=== PATIENT | female | born 1975 | race American Indian/Alaskan Native ===

== ENCOUNTER 2018-07-13 13:59 | Emergency (ER) | payer MEDICAID, OTHER ==
[~2018-07-13] VITALS: Ht 175.3 cm; Wt 100.0 kg
[~2018-07-13 13:59] MED LIST: ATI1T PO; CIPR-259 PO; METF-436 PO; ONDA4TAB12 PO
[2018-07-13 14:15] VITALS: BP 175/96
[2018-07-13] MEDS ORDERED: DOXY100T2 PO (15:36)
[2018-07-13] MEDS ORDERED: LIDOcaine 0.5% W/epiNEPHrine 1:200,000 50ml vial IJ ONE (15:55)
[2018-07-13] MEDS ORDERED: LIDOcaine 1% w/epiNEPHrine 1:200,000 30ml vial IJ ONE (16:10)
== END 2018-07-13 16:39 | disposition home or self-care (01) ==
LOC: ER 14:02
DX: S91.332D Puncture wound without foreign body, left foot, subsequent encounter (principal); L03.116 Cellulitis of left lower limb; E11.9 Type 2 diabetes mellitus without complications; F15.90 Other stimulant use, unspecified, uncomplicated; F10.10 Alcohol abuse, uncomplicated; Z88.5 Allergy status to narcotic agent; Z88.1 Allergy status to other antibiotic agents; Z79.84 Long term (current) use of oral hypoglycemic drugs; Z79.2 Long term (current) use of antibiotics; Z79.899 Other long term (current) drug therapy; Z56.0 Unemployment, unspecified; Y90.9 Presence of alcohol in blood, level not specified; W22.8XXD Striking against or struck by other objects, subsequent encounter
CPT/HCPCS: 10060; 99284; J3490

== ENCOUNTER 2018-09-02 10:25 | Emergency (ER) | payer MEDICAID ==
[~2018-09-02] VITALS: Ht 175.3 cm; Wt 110.9 kg
[~2018-09-02 10:25] MED LIST changes: -CIPR-259 PO; +DOXY100T2 PO
--- NOTE | 2018-09-02 11:36 | NUR ---
Lab at bedside, pt cooperative with blood draw.
[2018-09-02 12:14] LABS: ALANINE AMINOTRANSFERASE 25 U/L (12-78); ALBUMIN 3.2 G/DL (3.4-5.0); ALBUMIN/GLOBULIN RATIO 0.7 (1.1-1.5); ALKALINE PHOSPHATASE 104 IU/L (46-116); ANION GAP 11 (8-16); ASPARTATE AMINO TRANSFERASE 26 U/L (10-37); BILIRUBIN,TOTAL 0.7 MG/DL (0.1-1.0); BLOOD UREA NITROGEN 15 MG/DL (7-18); BUN/CREATININE RATIO 23.1 (6.6-38.0); CALCIUM 8.6 MG/DL (8.5-10.1); CHLORIDE 102 MMOL/L (99-107); CREATININE 0.65 MG/DL (0.40-0.90); GLUCOSE 127 MG/DL (70-104); POTASSIUM 4.6 MMOL/L (3.5-5.1); SODIUM 134 MMOL/L (135-145); TOTAL CARBON DIOXIDE 20.9 MMOL/L (24-32); TOTAL PROTEIN 7.6 G/DL (6.4-8.2); eGFR > 90 ML/MIN
[2018-09-02 12:22] LABS: ETHANOL < 0.010 GM/DL (0.0-0.010)
[2018-09-02 12:23] LABS: ACETAMINOPHEN < 2.0 UG/ML (10-30)
[2018-09-02 12:40] LABS: BASOPHILS % (AUTO) 0.5 % (0-1); EOSINOPHILS # (AUTO) 0.2 X10'3 (0-0.9); HEMATOCRIT 43.4 % (35.0-45.0); HEMOGLOBIN 14.5 g/dl (12.0-16.0); LYMPHOCYTES # (AUTO) 2.2 X10'3 (1.1-4.8); LYMPHOCYTES % (AUTO) 24.6 % (21-51); MEAN CORPUSCULAR HEMOGLOBIN 29.2 PG (27.0-31.0); MEAN CORPUSCULAR HGB CONC 33.5 g/dL (33.0-36.5); MEAN CORPUSCULAR VOLUME 87.2 FL (78-98); MEAN PLATELET VOLUME 8.3 FL (7.4-10.4); MONOCYTES # (AUTO) 0.9 X10'3 (0-0.9); MONOCYTES % (AUTO) 10.5 % (2-12); NEUTROPHILS # (AUTO) 5.5 X10'3 (1.8-7.7); NEUTROPHILS % (AUTO) 62.4 % (42-75); PLATELET COUNT 269 X10'3 (140-440); RED BLOOD COUNT 4.98 X10'6 (4.20-5.60); RED CELL DISTRIBUTION WIDTH 14.3 % (11.5-14.5); WHITE BLOOD COUNT 8.9 X10'3 (4.5-11.0)
--- NOTE | 2018-09-02 13:45 | NUR ---
PT SLEEPING, RESPIRATIONS SPONTANEOUS, EVEN AND UNLABORED, NO S/S OF DISTRESS DISCOMFORT OR AGITATION.
--- NOTE | 2018-09-02 14:19 | NUR ---
PT WAKENED BY TIANA CLINTON, PT AMBULATORY TO BATHROOM WITH STEADY GAIT TO PROVIDE URINE SAMPLE PER ORDERS NOW.
[2018-09-02 14:43] LABS: URINE HCG NEGATIVE (NEG)
[2018-09-02 14:55] LABS: URINE AMPHETAMINE SCREEN POSITIVE (Neg); URINE BARBITUATE SCREEN NEGATIVE (Neg); URINE BENZODIAZEPINES SCREEN NEGATIVE (Neg); URINE CANNABINOID SCREEN NEGATIVE (Neg); URINE COCAINE SCREEN NEGATIVE (Neg); URINE METHADONE SCREEN NEGATIVE (Neg); URINE OPIATE SCREEN NEGATIVE (Neg); URINE PHENCYCLIDINE SCREEN NEGATIVE (Neg)
[2018-09-02 15:04] LABS: CLARITY,URINE SLIGHTLY CLOUDY (Clear); COLOR,URINE YELLOW (Yellow); GLUCOSE, URINE NEGATIVE (Neg); KETONES,URINE TRACE mg/dl (Neg); LEUKOCYTE ESTERASE ,URINE NEGATIVE (Neg); NITRITES, URINE NEGATIVE (Neg); OCCULT BLOOD,URINE NEGATIVE (Neg); PH,URINE 5.5 (4.8-8.0); PROTEIN,URINE NEGATIVE (Neg); UA COLLECTION TYPE CLN CATCH MIDSTREAM; UROBILINOGEN,URINE 0.2 E.U/dL (0.2-1.0)
[2018-09-02 15:23] LABS: BACTERIA,URINE FEW /HPF (Neg); RBC,URINE NONE SEEN /HPF (0-2); SQUAMOUS EPITHELIAL CELL,UR FEW /LPF (FEW); WBC,URINE 0-4 /HPF (0-4)
[2018-09-02 15:24] LABS: MUCUS STRANDS FEW /LPF (Neg); URIC ACID CRYSTALS 4+ /HPF (NEGATIVE)
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
--- NOTE | 2018-09-02 17:32 | NUR ---
DR ASH TELEPSYCH PROVIDER CALLED, INFORMED OF PT STATUS, HISTORY AND VS, PROVIDER WILL CALL PT VIA TELEPSCH MONINTOR AT BEDSIDE NOW.
--- NOTE | 2018-09-02 17:55 | NUR ---
RECEIVED CALL FROM DR ASH SPECIALIST ONCALL, RECOMMENDING INVOLUNTARY HOLD AND IP PLACEMENT DUE TO SI STATEMENTS AND ETOH USE.
--- NOTE | 2018-09-02 18:01 | NUR ---
PT STATES SHE DRINKS 3-5 42 OUNCE STILL RESERVE AND 1/5 OF WHISKEY OR VODKA DAILY X COUPLE MONTHS, DR ANGLIN INFORMED.
--- NOTE | 2018-09-02 18:05 | NUR ---
DR ANGLIN HAS LEFT, DR LARA INFORMED OF PT DAILY ETOH USE, INSTRUCTED WAIT FOR TELEPSYCH RECOMMENDATIONS AND LOOK FOR ETOH WITHDRAW SYMPTOMS TACHYCARDIA AND TREMORS AND NOTIFY RN AND DOCTOR.
--- NOTE | 2018-09-02 18:28 | NUR ---
RPT RECVD FROM RIA RN, ASSUMED CARE OF PT. PT IS LAYING IN BED, CALM COOPERATIVE
--- NOTE | 2018-09-02 20:27 | NUR ---
PT IS LAYING ON HER BACK W/EARPLUGS IN HER EARS, ASLEEP, RR EVEN AND UNLABORED NO S/S DISTRESS.
[2018-09-02] MEDS: traZODone 50mg tablet PO PRN (22:36)
[2018-09-02] MEDS ORDERED: acetaminophen 325mg tablet PO ONE (22:45)
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
--- NOTE | 2018-09-03 00:31 | NUR ---
[facility] NURSE TO NURSE CALL FROM RANJITH AT [facility], RANJITH STATES THE DOCTOR WILL PROBABLY WANT TO WAIT ON ADMITTING THIS PATIENT DUE TO ETOH AND THEY WILL CALL AND LET US KNOW TOMORROW.
--- NOTE | 2018-09-03 01:29 | NUR ---
PT IS LAYING IN BED SLEEPING RR EVEN AND UNLABORED NO S/S DISTRESS.
--- NOTE | 2018-09-03 03:21 | NUR ---
PT IS LAYING ON HER BACK IN BED RR EVEN AND UNLABORED NO S/S DISTRESS
--- NOTE | 2018-09-03 05:33 | NUR ---
PT LAYING IN BED ON RIGHT SIDE RR EVEN AND UNLABORED NO S/S DISTRESS.
--- NOTE | 2018-09-03 06:39 | NUR ---
Patient sleeping on right side. No restless/distress observed. Patient is snoring. Continue to monitor.
--- NOTE | 2018-09-03 08:10 | NUR ---
Patient eating breakfast. No distress observed. Patient is calm and talkative. Continue to monitor.
[2018-09-03] MEDS: sertraline 50mg tablet PO SCH (08:28)
[2018-09-03] MEDS ORDERED: ibuprofen 200mg tablet PO ONE (09:10)
--- NOTE | 2018-09-03 10:20 | NUR ---
RN gave patient ibuprofen earlier for generalized body pain. Patient is sleeping on right side. No distress observed. Continue to monitor.
--- NOTE | 2018-09-03 12:15 | NUR ---
Patient sleeping. No distress observed. Continue to monitor.
--- NOTE | 2018-09-03 18:07 | NUR ---
Patient sitting up in bed. No distress observed. Continue to monitor.
--- NOTE | 2018-09-03 18:44 | NUR ---
Received report and was notified by ED charge Leihg that patient will be relocated to bed 7 in ED due to staffing. Patient moved with photogrammetric technician.
--- NOTE | 2018-09-03 18:51 | NUR ---
ASSUMED CARE OF PT, SITTER AT BEDSIDE,
--- NOTE | 2018-09-03 20:57 | NUR ---
pt is sleeping, resp even and unlabored
--- NOTE | 2018-09-03 23:14 | NUR ---
PT IS SLEEPING, RESP EVEN AND UNLABORED
[2018-09-03] MEDS: traZODone 50mg tablet PO PRN (23:24)
[2018-09-04] MEDS: sertraline 50mg tablet PO SCH (07:48)
--- NOTE | 2018-09-04 09:42 | NUR ---
PT IN NO DISTRESS. RESTING WELL ON GURNEY.
--- NOTE | 2018-09-04 13:08 | NUR ---
PT AWAKE AND ASKING FOR FOOD. PT INFORMED LUNCH SHOULD BE HERE IN A FEW MIN.
--- NOTE | 2018-09-04 13:29 | NUR ---
PT GIVEN LUNCH
--- NOTE | 2018-09-04 15:39 | NUR ---
PT RESTING ON GURNEY IN NO DISTRESS.
--- NOTE | 2018-09-04 16:25 | NUR ---
PT DOES NOT SHOW ANY SIGNS OF HAVING ALCOHOL WITHDRAWAL. SHE HAS BEEN SLEEPING A LOT AND AWAKE AND HAS BEEN VERY COOPERATIVE. NO SWEATS, SHAKING, HALLUCINATIONS. MEDICALLY DOING WELL. PT STATES SHE HAS A LITTLE ANXIETY BUT SHE MISSES HER KIDS. PT ALSO STATES SHE IS FINE AND IS OK WITH HOW THINGS ARE GOING AND THAT THIS PROCESS IS TAKING TIME. SHE STATES SHE IS STILL SAD AND "I DON'T KNOW WHAT TO DO."
[2018-09-04] MEDS ORDERED: acetaminophen 325mg tablet PO ONE (16:45)
--- NOTE | 2018-09-04 18:24 | NUR ---
TALKED WITH DAVID FROM [facility] ABOUT PLACING PT. HE STATES THEY DO NOT HAVE ANY BEDS AT THIS TIME UNTIL FRIDAY BUT HE IS PUTTING HER ON THE LIST.
--- NOTE | 2018-09-04 18:30 | NUR ---
PT GIVEN A BOOK TO READ AND SOME COLORING PAGES WITH SOME CRAYONS.
--- NOTE | 2018-09-04 18:45 | NUR ---
Pt walked over from main ED accompanied by RN to bed 20.
[2018-09-04] MEDS ORDERED: NO HOME MEDS (20:15)
--- NOTE | 2018-09-04 20:45 | NUR ---
Pt up to bathroom to give herself a sponge bath, bath wipes provided.
[2018-09-04] MEDS: traZODone 50mg tablet PO PRN (21:15)
[2018-09-05] MEDS ORDERED: acetaminophen 325mg tablet PO PRN (06:10)
--- NOTE | 2018-09-05 07:09 | NUR ---
RESTING ON LEFT SIDE EYES CLOSED RR EQUAL AND UNLABORED
--- NOTE | 2018-09-05 08:02 | NUR ---
RESTING ON LEFT SIDE EYES CLOSED RR EQUAL AND UNLABORED
[2018-09-05] MEDS: sertraline 50mg tablet PO SCH (08:42)
--- NOTE | 2018-09-05 08:45 | NUR ---
AWAKE SITTING ON SIDE OF BED EATING BREAKFAST. TYLENOL GIVEN FOR PAIN. NO NEEDS AT THIS TIME
--- NOTE | 2018-09-05 09:10 | NUR ---
UP TO BR, STEADY GATE
--- NOTE | 2018-09-05 10:30 | NUR ---
scmh at bs for eval. pt started yelling and being distruptive. security call for stand by. Shantel EMT at bs to take vs as pt states "i cant breath"
--- NOTE | 2018-09-05 10:42 | NUR ---
pt now resting eyes closed rr equal
--- NOTE | 2018-09-05 14:05 | NUR ---
[facility] CALLED FOR NURSE TO NURSE. ALL QUESTIONS ANSWERED. NURSE SPEAKING TO PT.
--- NOTE | 2018-09-05 14:55 | NUR ---
PT AWAKE WAITING TO HERE IF SHE HAS BEEN ACCEPTED TO [facility]
--- NOTE | 2018-09-05 15:46 | NUR ---
CALL PLACED TO [facility] OFFICE TO INQUIRE IF PT HAS BEEN ACCEPTED TO [facility]. PT HAS BEEN ACCEPTED AND THEY REQUEST SHE BE THERE BY 1999. [place] OFFICE STATES A VERIFICATION CLERK WILL BE HERE BETWEEN [phone]. IMFORMED PT OF PLAN.
[2018-09-05 17:54] VITALS: BP 183/103
--- NOTE | 2018-09-05 17:55 | NUR ---
UP TO BR
--- NOTE | 2018-09-05 18:43 | NUR ---
PT AWAITING TRANSFER TO [facility].
--- NOTE | 2018-09-05 19:46 | NUR ---
RELATIONSHIP ASSOCIATE HERE FOR TRANSFER TO [facility].
== END 2018-09-05 19:55 ==
LOC: ER 10:26
DX: R45.851 Suicidal ideations (principal); E11.9 Type 2 diabetes mellitus without complications; F15.90 Other stimulant use, unspecified, uncomplicated; Z88.1 Allergy status to other antibiotic agents; Z56.0 Unemployment, unspecified; Z88.6 Allergy status to analgesic agent
CPT/HCPCS: 36415; 80053; 80305; 80320; 80329; 81001; 81025; 84443; 85025; 99285

== ENCOUNTER 2018-12-11 14:04 | Emergency (ER) | payer MEDICAID ==
[~2018-12-11] VITALS: Ht 162.6 cm; Wt 113.0 kg
[~2018-12-11 14:04] MED LIST changes: -ATI1T PO; -DOXY100T2 PO; -METF-436 PO; +NO HOME MEDS; -ONDA4TAB12 PO
[2018-12-11 14:33] VITALS: BP 184/100
== END 2018-12-11 15:03 ==
LOC: ER 14:05
DX: I10 Essential (primary) hypertension (principal); E11.9 Type 2 diabetes mellitus without complications; F15.90 Other stimulant use, unspecified, uncomplicated; Z02.89 Encounter for other administrative examinations; Z56.0 Unemployment, unspecified; Z88.5 Allergy status to narcotic agent; Z88.8 Allergy status to other drugs, medicaments and biological substances
CPT/HCPCS: 99283

== ENCOUNTER 2019-01-09 06:34 | Emergency (ER) | payer MEDICAID ==
[~2019-01-09] VITALS: Ht 175.3 cm; Wt 114.0 kg
[2019-01-09 07:10] LABS: CLARITY,URINE CLOUDY (Clear); COLOR,URINE YELLOW (Yellow); GLUCOSE, URINE NEGATIVE (Neg); KETONES,URINE NEGATIVE (Neg); LEUKOCYTE ESTERASE ,URINE TRACE (Neg); NITRITES, URINE NEGATIVE (Neg); OCCULT BLOOD,URINE LARGE (Neg); PH,URINE 5.5 (4.8-8.0); PROTEIN,URINE NEGATIVE (Neg); UROBILINOGEN,URINE 0.2 E.U/dL (0.2-1.0)
[2019-01-09 07:13] LABS: URINE HCG NEGATIVE (NEG)
[2019-01-09 07:16] LABS: UA COLLECTION TYPE CLN CATCH MIDSTREAM
[2019-01-09 07:18] LABS: MUCUS STRANDS FEW /LPF (Neg); SQUAMOUS EPITHELIAL CELL,UR MODERATE /LPF (FEW)
[2019-01-09 07:19] LABS: RBC,URINE TNTC /HPF (0-2)
[2019-01-09 07:21] LABS: BACTERIA,URINE 1+ /HPF (Neg); WBC,URINE 0-4 /HPF (0-4)
[2019-01-09 08:46] LABS: BASOPHILS % (AUTO) 0.6 % (0-1); EOSINOPHILS # (AUTO) 0.1 X10'3 (0-0.9); EOSINOPHILS % (AUTO) 1.9 % (0-6); HEMATOCRIT 43.1 % (35.0-45.0); HEMOGLOBIN 14.4 g/dl (12.0-16.0); LYMPHOCYTES % (AUTO) 26.1 % (21-51); MEAN CORPUSCULAR HEMOGLOBIN 29.5 PG (27.0-31.0); MEAN CORPUSCULAR HGB CONC 33.4 g/dL (33.0-36.5); MEAN CORPUSCULAR VOLUME 88.4 FL (78-98); MONOCYTES # (AUTO) 0.6 X10'3 (0-0.9); MONOCYTES % (AUTO) 8.1 % (2-12); NEUTROPHILS # (AUTO) 4.7 X10'3 (1.8-7.7); NEUTROPHILS % (AUTO) 63.3 % (42-75); PLATELET COUNT 272 X10'3 (140-440); RED BLOOD COUNT 4.88 X10'6 (4.20-5.60); WHITE BLOOD COUNT 7.5 X10'3 (4.5-11.0)
[2019-01-09 08:51] VITALS: BP 233/74
== END 2019-01-09 09:10 | disposition home or self-care (01) ==
LOC: ER 06:34
DX: N93.8 Other specified abnormal uterine and vaginal bleeding (principal); E11.9 Type 2 diabetes mellitus without complications; F15.90 Other stimulant use, unspecified, uncomplicated; F17.200 Nicotine dependence, unspecified, uncomplicated; Z88.1 Allergy status to other antibiotic agents; Z88.6 Allergy status to analgesic agent; Z87.440 Personal history of urinary (tract) infections; Z56.0 Unemployment, unspecified
CPT/HCPCS: 36415; 81001; 81025; 85025; 87088; 99283

== ENCOUNTER 2019-03-26 21:01 | Emergency (ER) | payer MEDICAID ==
[~2019-03-26] VITALS: Ht 175.3 cm; Wt 113.6 kg
[2019-03-26] MEDS ORDERED: acetaminophen 325mg tablet PO ONE (21:30)
[2019-03-26] MEDS ORDERED: ketorolac trometh inj. 60 MG/2 ML VIAL IM ONE (21:30)
[2019-03-26] MEDS ORDERED: HYDR-3965 PO (22:17)
[2019-03-26 22:45] VITALS: BP 147/94
== END 2019-03-26 22:50 | disposition home or self-care (01) ==
LOC: ER 21:01
DX: S93.402A Sprain of unspecified ligament of left ankle, initial encounter (principal); M54.6 Pain in thoracic spine; E11.9 Type 2 diabetes mellitus without complications; F15.90 Other stimulant use, unspecified, uncomplicated; Z98.890 Other specified postprocedural states; Z56.0 Unemployment, unspecified; Z88.1 Allergy status to other antibiotic agents; Z88.5 Allergy status to narcotic agent; Z79.899 Other long term (current) drug therapy; W18.39XA Other fall on same level, initial encounter; Y93.89 Activity, other specified; Y92.89 Other specified places as the place of occurrence of the external cause; Y99.8 Other external cause status
CPT/HCPCS: 29540; 73610; 73630; 96372; 99284; J1885

== ENCOUNTER 2019-04-02 18:38 | Emergency (ER) | payer MEDICAID ==
[~2019-04-02] VITALS: Ht 176.5 cm; Wt 100.0 kg
[~2019-04-02 18:38] MED LIST changes: +HYDR-3965 PO
--- NOTE | 2019-04-02 20:00 | NUR ---
Patient taken to BR in W/C by RN. Patient moved herself over to toilet and RN left patient after a few minutes patient started crying. RN went back in the BR and patient had stool with blood on the sheet she was sitting on. RN stated she would tell the doctor but RN advised patient that it was probably a hemorroid. Patient taken back to the room and Radiology with patient. Continue to monitor.
[2019-04-02] MEDS ORDERED: HYDROcodone/acetaminophen 10/325mg tab PO ONE (20:40)
[2019-04-02] MEDS ORDERED: CEPH-572 PO (21:05)
[2019-04-03] MEDS ORDERED: ONDA8TAB6 PO (19:39)
[2019-04-03] MEDS ORDERED: ACYC-202 PO (19:39)
[2019-04-03] MEDS ORDERED: DOXY100C43 PO (19:39)
== END 2019-04-02 21:21 | disposition home or self-care (01) ==
LOC: ER 18:39
DX: L03.116 Cellulitis of left lower limb (principal); M25.562 Pain in left knee; E11.9 Type 2 diabetes mellitus without complications; F15.90 Other stimulant use, unspecified, uncomplicated; Z98.890 Other specified postprocedural states; Z56.0 Unemployment, unspecified; Z79.2 Long term (current) use of antibiotics; Z88.5 Allergy status to narcotic agent; Z79.899 Other long term (current) drug therapy
CPT/HCPCS: 73600; 99284

== ENCOUNTER 2019-04-03 09:39 | Emergency (ER) | payer MEDICAID ==
[~2019-04-03] VITALS: Ht 175.3 cm; Wt 100.0 kg
[~2019-04-03 09:39] MED LIST changes: +CEPH-572 PO
[2019-04-03 09:53] VITALS: BP 133/97
[2019-04-03] MEDS ORDERED: DOXY100C43 PO (19:39)
[2019-04-03] MEDS ORDERED: ONDA8TAB6 PO (19:39)
[2019-04-03] MEDS ORDERED: ACYC-202 PO (19:39)
== END 2019-04-03 10:00 ==
LOC: ER 09:39
DX: M25.572 Pain in left ankle and joints of left foot (principal); R60.0 Localized edema; R22.42 Localized swelling, mass and lump, left lower limb; E11.9 Type 2 diabetes mellitus without complications; F15.90 Other stimulant use, unspecified, uncomplicated; F10.10 Alcohol abuse, uncomplicated; Z56.0 Unemployment, unspecified; Z98.890 Other specified postprocedural states; Z88.1 Allergy status to other antibiotic agents; Z88.5 Allergy status to narcotic agent; Z79.899 Other long term (current) drug therapy; X58.XXXA Exposure to other specified factors, initial encounter; Y93.89 Activity, other specified; Y92.89 Other specified places as the place of occurrence of the external cause; Y99.8 Other external cause status; Y90.9 Presence of alcohol in blood, level not specified
CPT/HCPCS: 29515; 99283

== ENCOUNTER 2019-04-03 16:45 | Emergency (ER) | payer MEDICAID ==
[~2019-04-03] VITALS: Ht 175.3 cm; Wt 100.0 kg
--- NOTE | 2019-04-03 17:25 | NUR ---
[facility] notified, advocate with patient.
--- NOTE | 2019-04-03 18:00 | NUR ---
Clarissa Eckert, staff with [facility] at bedside
--- NOTE | 2019-04-03 18:07 | NUR ---
[facility] contacted, they will not be aurthorizing a kit.
--- NOTE | 2019-04-03 18:18 | NUR ---
gave pt warm blanket and water
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
--- NOTE | 2019-04-03 18:30 | NUR ---
Dr Torres at bedside, at bedside to assist Dr Connell with rectal and genital examine, Aunt of pt is demanding a pelvic examine be done, no blood noted with initial examine.
--- NOTE | 2019-04-03 19:00 | NUR ---
pt moved to [employer] room in fast track for pelvic examine, pt is able to transfer from gurney to wheelchair without assist "I don't need your help, I can do it myself"
[2019-04-03 19:10] LABS: BASOPHILS # (AUTO) 0.1 X10'3 (0-0.2); BASOPHILS % (AUTO) 0.7 % (0-1); EOSINOPHILS # (AUTO) 0.1 X10'3 (0-0.9); EOSINOPHILS % (AUTO) 1.3 % (0-6); HEMOGLOBIN 12.2 g/dl (12.0-16.0); LYMPHOCYTES # (AUTO) 2.3 X10'3 (1.1-4.8); LYMPHOCYTES % (AUTO) 20.1 % (21-51); MEAN CORPUSCULAR HEMOGLOBIN 29.4 PG (27.0-31.0); MEAN CORPUSCULAR VOLUME 88.9 FL (78-98); MEAN PLATELET VOLUME 8.2 FL (7.4-10.4); MONOCYTES # (AUTO) 1.1 X10'3 (0-0.9); MONOCYTES % (AUTO) 9.8 % (2-12); NEUTROPHILS # (AUTO) 7.7 X10'3 (1.8-7.7); NEUTROPHILS % (AUTO) 68.1 % (42-75); PLATELET COUNT 356 X10'3 (140-440); RED BLOOD COUNT 4.16 X10'6 (4.20-5.60); RED CELL DISTRIBUTION WIDTH 13.8 % (11.5-14.5); WHITE BLOOD COUNT 11.3 X10'3 (4.5-11.0)
--- NOTE | 2019-04-03 19:15 | NUR ---
assisted Dr Connell with pelvic examine, pt noemí well. Pt is able to sit up without assist and move back on bed, velcro splint to rt ankle readjusted per request of pt, Aunt and staff from [facility] at bedside, covered pt with blanket
[2019-04-03] MEDS ORDERED: ONDA8TAB6 PO (19:39)
[2019-04-03] MEDS ORDERED: ACYC-202 PO (19:39)
[2019-04-03] MEDS ORDERED: DOXY100C43 PO (19:39)
--- NOTE | 2019-04-03 20:00 | NUR ---
PT SAID SHE HAS CRUTCHES AT HOME TO USE, PLANS TO STAY WITH HER FAMILY GLEN
[2019-04-03 20:26] VITALS: BP 177/100
== END 2019-04-03 20:28 | disposition home or self-care (01) ==
LOC: EEVIPCON 16:47 → ER 16:47
DX: N93.9 Abnormal uterine and vaginal bleeding, unspecified (principal); A60.00 Herpesviral infection of urogenital system, unspecified; K64.9 Unspecified hemorrhoids; E11.9 Type 2 diabetes mellitus without complications; F15.90 Other stimulant use, unspecified, uncomplicated; F10.10 Alcohol abuse, uncomplicated; Z98.890 Other specified postprocedural states; Z56.0 Unemployment, unspecified; Z88.5 Allergy status to narcotic agent; Z88.1 Allergy status to other antibiotic agents; Z79.899 Other long term (current) drug therapy; Y90.9 Presence of alcohol in blood, level not specified
CPT/HCPCS: 36415; 84702; 85025; 99283

== ENCOUNTER 2019-05-23 10:07 | Emergency (ER) | payer MEDICAID ==
[~2019-05-23] VITALS: Ht 175.3 cm; Wt 120.0 kg
[~2019-05-23 10:07] MED LIST changes: -CEPH-572 PO; -HYDR-3965 PO; +ONDA8TAB6 PO
[2019-05-23 12:07] VITALS: BP 190/88
[2019-05-23] MEDS ORDERED: ibuprofen tablet 400 MG TABLET PO ONE (12:20)
== END 2019-05-23 12:38 | disposition home or self-care (01) ==
LOC: ER 10:07
DX: S00.03XA Contusion of scalp, initial encounter (principal); L01.09 Other impetigo; F19.10 Other psychoactive substance abuse, uncomplicated; E11.9 Type 2 diabetes mellitus without complications; F15.90 Other stimulant use, unspecified, uncomplicated; Z56.0 Unemployment, unspecified; Z98.890 Other specified postprocedural states; Z88.1 Allergy status to other antibiotic agents; Z88.5 Allergy status to narcotic agent; W18.49XA Other slipping, tripping and stumbling without falling, initial encounter; Y93.89 Activity, other specified; Y92.89 Other specified places as the place of occurrence of the external cause; Y99.9 Unspecified external cause status
CPT/HCPCS: 99284